=== PATIENT | female | born 1960 | race Caucasian/White ===

== ENCOUNTER → 2016-07-17 | Outpatient (REF) | payer BC ==
[2016-07-17 12:27] LABS: BASO # 0.1 K/mm3 (0.0-0.2); BASO % 1.3 % (0.0-1.0); EOS # 0.4 K/mm3 (0.0-0.50); EOS % 3.5 % (0.0-3.0); LARGE UNSTAINED CELL # 0.1 K/mm3 (0.0-0.4); LARGE UNSTAINED CELL % 1.2 % (0.0-4.0); LYMPH # 3.6 K/mm3 (1.5-4.5); LYMPH % 33.2 % (24.0-44.0); MEAN CORPUSCULAR HEMOGLOBIN 25.6 pg (27.0-33.0); MEAN CORPUSCULAR HGB CONC 31.4 g/dl (32.0-36.5); MEAN CORPUSCULAR VOLUME 81.5 fl (80.0-96.0); MONO # 0.5 K/mm3 (0.0-0.8); MONO % 4.8 % (0.0-5.0); NEUTROPHILS # 5.8 K/mm3 (1.8-7.7); PLATELET COUNT, AUTOMATED 276 k/mm3 (150-450); RED CELL DISTRIBUTION WIDTH 15.9 % (11.5-14.5); WHITE BLOOD COUNT 10.4 K/mm3 (4.0-10.0)
[2016-07-17 12:42] LABS: ANION GAP 6 MEQ/L (8-16); BLOOD UREA NITROGEN 10 MG/DL (7-18); CALCIUM LEVEL 8.6 MG/DL (8.5-10.1); CARBON DIOXIDE LEVEL 30 MEQ/L (21-32); CHLORIDE LEVEL 104 MEQ/L (98-107); CREATININE FOR GFR 0.81 MG/DL (0.55-1.02); GLOMERULAR FILTRATION RATE > 60.0 (>51); GLUCOSE, FASTING 106 MG/DL (70-105); POTASSIUM SERUM 4.3 MEQ/L (3.5-5.1); SODIUM LEVEL 140 MEQ/L (136-145)
== END ==
LOC: M SFHCPLAZ 08:24
PROVIDERS: ATTEND Internal Medicine
DX: Z01.818 Encounter for other preprocedural examination (principal); R71.8 Other abnormality of red blood cells; R73.01 Impaired fasting glucose

== ENCOUNTER → 2017-01-21 | Outpatient (REF) | payer BC ==
[2017-01-21 13:01] LABS: MEAN CORPUSCULAR HEMOGLOBIN 27.1 pg (27.0-33.0); MEAN CORPUSCULAR HGB CONC 33.1 g/dl (32.0-36.5); MEAN CORPUSCULAR VOLUME 81.8 fl (80.0-96.0); RED CELL DISTRIBUTION WIDTH 15.6 % (11.5-14.5); WHITE BLOOD COUNT 9.2 K/mm3 (4.0-10.0)
[2017-01-21 13:27] LABS: BANDS 1 % (< 11); BASOPHILS 1 % (0-4); EOSINOPHILS 6 % (0-5)
[2017-01-21 13:45] LABS: ALBUMIN 3.5 GM/DL (3.2-5.2); ALKALINE PHOSPHATASE 82 U/L (45-117); ALT/SGPT 20 U/L (12-78); ANION GAP 8 MEQ/L (8-16); AST/SGOT 11 U/L (15-37); BILIRUBIN,TOTAL 0.4 MG/DL (0.2-1.0); BLOOD UREA NITROGEN 11 MG/DL (7-18); CALCIUM LEVEL 8.9 MG/DL (8.5-10.1); CARBON DIOXIDE LEVEL 28 MEQ/L (21-32); CHLORIDE LEVEL 100 MEQ/L (98-107); CREATININE FOR GFR 0.72 MG/DL (0.55-1.02); GLOMERULAR FILTRATION RATE > 60.0 (>51); GLUCOSE, FASTING 87 MG/DL (70-105); SODIUM LEVEL 136 MEQ/L (136-145); TOTAL PROTEIN 7.4 GM/DL (6.4-8.2)
== END ==
LOC: M SFHCPLAZ 08:52
PROVIDERS: ATTEND Internal Medicine
DX: R71.8 Other abnormality of red blood cells (principal); R73.01 Impaired fasting glucose

== ENCOUNTER → 2018-02-06 | Outpatient (REF) | payer BC ==
[2018-02-06 10:21] LABS: HEMATOCRIT 39.7 % (36.0-47.0); HEMOGLOBIN 12.7 g/dl (12.0-15.5); MEAN CORPUSCULAR VOLUME 84.3 fl (80.0-96.0); PLATELET COUNT, AUTOMATED 326 10^3/uL (150-450); RED BLOOD COUNT 4.71 10^6/uL (4.00-5.40); RED CELL DISTRIBUTION WIDTH 14.7 % (11.5-14.5); WHITE BLOOD COUNT 11.3 10^3/uL (4.0-10.0)
[2018-02-06 10:53] LABS: ALBUMIN 3.5 GM/DL (3.2-5.2); ALKALINE PHOSPHATASE 83 U/L (45-117); ALT/SGPT 36 U/L (12-78); ANION GAP 9 MEQ/L (8-16); AST/SGOT 15 U/L (7-37); BILIRUBIN,TOTAL 0.2 MG/DL (0.2-1.0); BLOOD UREA NITROGEN 13 MG/DL (7-18); CALCIUM LEVEL 8.9 MG/DL (8.5-10.1); CARBON DIOXIDE LEVEL 27 MEQ/L (21-32); CHLORIDE LEVEL 106 MEQ/L (98-107); CHOLESTEROL LEVEL 200 MG/DL (<200); CHOLESTEROL RISK RATIO 3.846 (<5); CREATININE FOR GFR 0.79 MG/DL (0.55-1.30); GLOMERULAR FILTRATION RATE > 60.0 (>51); GLUCOSE, FASTING 98 MG/DL (70-100); HDL CHOLESTEROL 52 MG/DL (>40); LDL CHOLESTEROL 106.6 MG/DL (<100); NON-HDL-C 148 MG/DL; POTASSIUM SERUM 4.1 MEQ/L (3.5-5.1); SODIUM LEVEL 142 MEQ/L (136-145); TOTAL PROTEIN 7.4 GM/DL (6.4-8.2); TRIGLYCERIDES LEVEL 207 MG/DL (<150)
[2018-02-06 11:54] LABS: HEPATITIS C VIRUS ABY INDEX 0.1 INDEX (<0.8)
[2018-02-06 12:22] LABS: ESTIMATED AVERAGE GLUCOSE 114 MG/DL (60-110); HEMOGLOBIN A1c 5.6 %
== END ==
LOC: M SFHCPLAZ 08:08
DX: R71.8 Other abnormality of red blood cells (principal); R73.01 Impaired fasting glucose; Z11.59 Encounter for screening for other viral diseases
CPT/HCPCS: 80053

== ENCOUNTER → 2018-03-06 | Outpatient (CLI) | payer BC | LOC: M EKG 11:34 | DX: R55 Syncope and collapse (principal) | CPT/HCPCS: 93225 ==

== ENCOUNTER → 2018-03-09 | Outpatient (CLI) | payer BC | LOC: M LAB 17:02 | DX: I49.5 Sick sinus syndrome (principal) | CPT/HCPCS: 84443 ==

== ENCOUNTER 2018-03-11 11:38 | Observation (INO) | payer BC ==
[2018-03-11] MEDS ORDERED: LR 1,000 ML IV (12:00)
[2018-03-11] MEDS ORDERED: LIDOCAINE 2% INJ 100 MG/5 ML SDV (FOR ANES.) As Ordered (12:54)
[2018-03-11] MEDS ORDERED: PROPOFOL 200 MG/20 ML VIAL As Ordered (12:54)
[2018-03-11] MEDS ORDERED: ONDANSETRON 4MG/2ML VIAL (J2405) As Ordered (12:55)
[2018-03-11] MEDS ORDERED: MIDAZOLAM INJ 2 MG/2 ML VIAL (J2250) As Ordered (12:57)
[2018-03-11] MEDS ORDERED: fentaNYL 100 MCG/2 ML INJECTION (J3010) As Ordered (12:57)
[2018-03-11] MEDS: ISOVUE-300 61% 50ML VIAL (Q9967) As Ordered (13:04)
[2018-03-11] MEDS: AMIODARONE HCL 360 MG/200 ML PREMIXED BAG (NEXTERONE) As Ordered (13:04)
[2018-03-11] MEDS: BACITRACIN PWD 50,000 UNITS VIAL As Ordered (13:04)
[2018-03-11] MEDS: LIDOCAINE 1% SDV INJ 30 ML VIAL As Ordered (13:48)
[2018-03-11] MEDS: LR 1,000 ML IV (14:58)
[2018-03-11] MEDS ORDERED: zolPIDEM TARTRATE 5 MG TAB PO (15:00)
[2018-03-11] MEDS ORDERED: traMADol 50 MG TAB PO (15:15)
[2018-03-11] MEDS ORDERED: PERCOCET 5MG/325MG TAB As Ordered (15:19)
[2018-03-11] MEDS: PERCOCET 5MG/325MG TAB PO (15:20)
[2018-03-11] MEDS ORDERED: HYDROMORPHONE HCL 0.5 MG/ 0.5 ML SYRINGE (J1170 PER 1) IV (15:30)
[2018-03-11] MEDS ORDERED: ONDANSETRON 4MG/2ML VIAL (J2405) IV (15:30)
[2018-03-11] MEDS ORDERED: fentaNYL 100 MCG/2 ML INJECTION (J3010) IV (15:30)
[2018-03-11] MEDS: LORATADINE 10 MG TAB PO (15:59)
[2018-03-11] MEDS ORDERED: SLF 3 ML SYR IV (16:30)
[2018-03-11] MEDS: POLYVINYL ALCOHOL OPHTH SOLN 15 ML(LIQUITEARS) OU ×2 (17:00→21:00)
[2018-03-11] MEDS: ACETAMINOPHEN TAB 650MG DOSE (2X325MG) PO (19:19)
[2018-03-11] MEDS: ceFAZolin SOD 1 GM in D5W MINI-BAG PLUS 50 ML IV (21:38)
[2018-03-11] MEDS: DOCUSATE SODIUM 100 MG CAP PO (21:38)
[2018-03-11] MEDS: SLF 3 ML SYR IV (21:39)
[2018-03-12] MEDS: ACETAMINOPHEN TAB 650MG DOSE (2X325MG) PO ×4 (04:08→18:02)
[2018-03-12] MEDS: ceFAZolin SOD 1 GM in D5W MINI-BAG PLUS 50 ML IV ×2 (04:08→13:14)
[2018-03-12] MEDS: SLF 3 ML SYR IV ×2 (04:09→14:00)
[2018-03-12] MEDS: POLYVINYL ALCOHOL OPHTH SOLN 15 ML(LIQUITEARS) OU ×4 (09:00→16:47)
[2018-03-12] MEDS: LORATADINE 10 MG TAB PO (09:07)
[2018-03-12] MEDS: DOCUSATE SODIUM 100 MG CAP PO (09:07)
[2018-03-12] MEDS: FLUoxetine 20 MG CAP PO (09:08)
== END 2018-03-12 20:42 | disposition home or self-care (01) ==
LOC: M SDC 11:38 → M ED INP 14:54 → M PCU 15:42
DX: I49.5 Sick sinus syndrome (principal); R55 Syncope and collapse; J45.909 Unspecified asthma, uncomplicated
CPT/HCPCS: 33208

== ENCOUNTER → 2018-07-22 | Outpatient (REF) | payer BC ==
[~2018-07-22] MED LIST: ACYC400T PO; BIOT2500 PO; CLAR10CA3 PO; FLUO40CA PO; NATU99.0 OP; PRED20TA PO; PREG50CA PO
== END ==
LOC: M SFHCPLAZ 16:21
PROVIDERS: ATTEND Internal Medicine
DX: M25.50 Pain in unspecified joint (principal)

== ENCOUNTER → 2018-07-23 | Outpatient (CLI) | payer BC ==
[~2018-07-23] MED LIST changes: -BIOT2500 PO; -PREG50CA PO
[2018-07-23 17:02] LABS: RHEUMATOID FACTOR QUANT < 10.0 IU/ML (<15.0)
[2018-07-27 00:06] LABS: ANA (HEP2) Negative (.); CYCLIC CITRULLINATED PEPTIDE 11 units (0-19); Lyme Disease IgG/IgM Antibodie <0.91 ISR (0.00-0.90); Lyme Disease IgM Ab Quantitati <0.80 index (0.00-0.79)
== END ==
LOC: M WUC 11:29
PROVIDERS: ATTEND Internal Medicine
DX: M25.50 Pain in unspecified joint (principal)

== ENCOUNTER 2018-10-24 12:03 | Emergency (ER) | payer BC ==
[~2018-10-24] VITALS: Ht 165.1 cm; Wt 102.3 kg
[~2018-10-24 12:03] MED LIST changes: +BIOT2500 PO; +PREG50CA PO; +TOPI50TA9 PO
[2018-10-24 12:04] VITALS: BP 137/65
--- NOTE | 2018-10-24 13:03 | REP ---
Unilateral left ribs PA chest five views History: Trauma Comparison: 03/12/2018 The lungs are clear. The heart is normal in size. The pulmonary vasculature is normal in appearance. The bony structure is intact. A cardiac pacemaker is present. Impression: No acute disease. Electronically Signed by Bertin Merino MD 10/24/2018 12:54 P
--- NOTE | 2018-10-24 17:43 | ECGEPIP ---
Stationary ECG Study [facility] - ED Test Date: 2018-10-24 Pat Name: VIRAL RUFF Department: Room: - Gender: F [place]: : 1960 Requested By: MARCELLO Ferrer Order Number: [id number] Reading MD: Ashley Myers Measurements Intervals [place] Rate: 76 P: 35 [place]: 198 QRS: 35 QRSD: 88 T: 68 QT: 387 QTc: 437 Interpretive Statements SINUS RHYTHM NONSPECIFIC T-WAVE ABNORMALITY DELAYED R WAVE PROGRESSION CW 03/12/[address] T WAVE CHANGES Electronically Signed On 10-24-2018 17:43:24 EDT by Ashley Myers
== END 2018-10-24 13:02 | disposition home or self-care (01) ==
LOC: M ED 12:03
DX: S80.12XA Contusion of left lower leg, initial encounter (principal); S20.212A Contusion of left front wall of thorax, initial encounter; W17.89XA Other fall from one level to another, initial encounter; Y92.838 Other recreation area as the place of occurrence of the external cause; F41.9 Anxiety disorder, unspecified; I49.5 Sick sinus syndrome; Z95.0 Presence of cardiac pacemaker; Z79.899 Other long term (current) drug therapy; Z91.018 Allergy to other foods

== ENCOUNTER 2018-10-26 13:41 | Emergency (ER) | payer BC ==
[~2018-10-26] VITALS: Ht 165.1 cm; Wt 104.0 kg
[2018-10-26] MEDS ORDERED: NORCO, ANEXSIA 5/325MG TABLET (HYDROcodone/ACETAMINOPHEN) PO ONE (15:30)
[2018-10-26] MEDS ORDERED: NORC1TAB7 PO (16:21)
[2018-10-26 16:26] VITALS: BP 125/66
--- NOTE | 2018-10-26 17:49 | REP ---
UNILATERAL LEFT RIBS, PA CHEST, FIVE VIEWS: HISTORY: Fall. COMPARISON: 10/24/2018 The lungs are clear. The heart is normal in size. The pulmonary vasculature is normal in appearance. The bony structure is intact. A cardiac pacemaker is present. IMPRESSION:No acute disease. Electronically Signed by Bertin Merino MD 10/27/2018 08:39 A
--- NOTE | 2018-10-26 19:06 | REP ---
CT CHEST WITHOUT IV CONTRAST: CT chest was performed without IV contrast. Sagittal and coronal reconstruction images are performed. Lung show dependant atelectatic changes. There is no pneumothorax. There is no pleural or pericardial effusion. The heart is normal in size. There is a left pacemaker. No gross adenopathy is seen. There is no aneurysm of the thoracic aorta. The visualized osseous structures appear intact. There are mild diffuse degenerative changes of the spine. IMPRESSION: No acute abnormality is detected. No evidence of rib fracture. No pneumothorax. Dependant atelectatic changes in the lung bases. Electronically Signed by Mauricio Dillard MD 10/28/2018 10:12 A
== END 2018-10-26 16:46 | disposition home or self-care (01) ==
LOC: M ED 13:41
DX: S20.212A Contusion of left front wall of thorax, initial encounter (principal); W10.9XXA Fall (on) (from) unspecified stairs and steps, initial encounter; Y92.219 Unspecified school as the place of occurrence of the external cause; Y93.9 Activity, unspecified; Y99.9 Unspecified external cause status; J98.11 Atelectasis; Z91.018 Allergy to other foods; Z95.0 Presence of cardiac pacemaker; Z79.891 Long term (current) use of opiate analgesic; Z79.899 Other long term (current) drug therapy

== ENCOUNTER → 2019-01-06 | Outpatient (REF) | payer BC ==
[~2019-01-06] MED LIST changes: +NORC1TAB7 PO
[2019-01-09 00:07] LABS: HPV HYBRID CAPTURE II Negative (Negative)
== END ==
LOC: M SFHCWAGY 16:05
PROVIDERS: ATTEND Nurse Practitioner Family
DX: Z12.4 Encounter for screening for malignant neoplasm of cervix (principal)
CPT/HCPCS: 87624; G0123

== ENCOUNTER → 2019-01-20 | Outpatient (REF) | payer BC ==
[2019-01-20 10:03] LABS: BASO % 0.4 % (0.0-1.0); EOS # 0.5 10^3/uL (0.0-0.50); EOS % 4.5 % (0.0-3.0); HEMATOCRIT 42.6 % (36.0-47.0); HEMOGLOBIN 13.3 g/dl (12.0-15.5); LYMPH # 3.9 10^3/uL (1.5-4.5); LYMPH % 38.6 % (24.0-44.0); MEAN CORPUSCULAR HEMOGLOBIN 26.8 pg (27.0-33.0); MEAN CORPUSCULAR HGB CONC 31.2 g/dl (32.0-36.5); MEAN CORPUSCULAR VOLUME 85.7 fl (80.0-96.0); MONO # 0.7 10^3/uL (0.0-0.8); MONO % 6.8 % (0.0-5.0); NEUTROPHILS % 49.4 % (36.0-66.0); PLATELET COUNT, AUTOMATED 279 10^3/uL (150-450); RED BLOOD COUNT 4.97 10^6/uL (4.00-5.40)
[2019-01-20 10:34] LABS: ALBUMIN 3.6 GM/DL (3.2-5.2); ALT/SGPT 26 U/L (12-78); BILIRUBIN,TOTAL 0.3 MG/DL (0.2-1.0); BLOOD UREA NITROGEN 11 MG/DL (7-18); CARBON DIOXIDE LEVEL 30 MEQ/L (21-32); CHLORIDE LEVEL 106 MEQ/L (98-107); CREATININE FOR GFR 0.67 MG/DL (0.55-1.30); GLOMERULAR FILTRATION RATE > 60.0 (>51); GLUCOSE, FASTING 94 MG/DL (70-100); POTASSIUM SERUM 4.4 MEQ/L (3.5-5.1); SODIUM LEVEL 140 MEQ/L (136-145); TOTAL PROTEIN 7.4 GM/DL (6.4-8.2)
== END ==
LOC: M SFHCPLAZ 08:10
PROVIDERS: ATTEND Nurse Practitioner Adult Health
DX: Z01.818 Encounter for other preprocedural examination (principal)

== ENCOUNTER → 2019-07-22 | Outpatient (CLI) | payer BC ==
--- NOTE | 2019-07-23 01:58 | REPPI ---
Clinical: Nontraumatic pain. Technique: AP, lateral, bilateral oblique and sunrise views of the left knee. Findings: Old healed proximal fibular fracture is suggested. The tibiofemoral joint space appears normal. [place] view demonstrates increase sclerosis and fraying along the anterior patellar margin with anterior prepatellar swelling suggesting patellar tendinopathy. No acute fracture dislocation. No obvious effusion. Impression: 1. No acute fracture dislocation. 2. Patellar tendinopathy. Electronically Signed by Ruddy Hackett MD 07/23/2019 01:49 A
== END ==
LOC: M PLALAB 09:21 → M PLAIMG 09:21
PROVIDERS: ATTEND Nurse Practitioner Adult Health
DX: M25.562 Pain in left knee (principal)

== ENCOUNTER → 2020-03-25 | Outpatient (CLI) | payer BC ==
[~2020-03-25] MED LIST changes: +ALBU8.5H INH; +DOXY100T; +MAGN400C PO; +MELO15TA28; +OCUVTAB8 PO; +OMEP1CAP73 PO; +PRED20TA
== END ==
LOC: M LABSMTC 11:24
PROVIDERS: ATTEND Anesthesiology
DX: Z01.812 Encounter for preprocedural laboratory examination (principal); Z20.828 Contact with and (suspected) exposure to other viral communicable diseases
CPT/HCPCS: C9803; U0003

== ENCOUNTER 2020-03-30 08:01 | Day surgery (SDC) | payer BC ==
[~2020-03-30] VITALS: Ht 165.1 cm; Wt 103.0 kg
[~2020-03-30 08:01] MED LIST changes: -DOXY100T; +LIDOCAINE 2% 100MG/5ML SDV (FOR ANES.) As Ordered ONE; -MELO15TA28; +NS 1,000 ML IV ONE; -PRED20TA; +propofoL 200 MG/20 ML VIAL As Ordered ONE
--- NOTE | 2020-03-30 08:57 | ROOR ---
Patient Name: Liz Al Procedure Date: 03/30/2020 8:28 AM Date of : 1960 Age: 59 Room: OP02 Gender: Female Note Status: Finalized Procedure: Colonoscopy Indications: Colon cancer screening in patient at increased risk: Family history of colorectal cancer in multiple 2nd degree relatives Providers: Ray MCCLOUD MD Referring MD: Jad Sood MD Requesting Provider: Medicines: Monitored Anesthesia Care Complications: No immediate complications. Procedure: Pre-Anesthesia Assessment: - The heart rate, respiratory rate, oxygen saturations, blood pressure, adequacy of pulmonary ventilation, and response to care were monitored throughout the procedure. The Colonoscope was introduced through the anus and advanced to the cecum, identified by appendiceal orifice and ileocecal valve. The colonoscopy was performed without difficulty. The patient tolerated the procedure well. The quality of the bowel preparation was good. Findings: The perianal and digital rectal examinations were normal. A diminutive polyp was found in the sigmoid colon. The polyp was sessile. The polyp was removed with a cold snare. Resection and retrieval were complete. Mild sigmoid diverticulosis and small internal hemorrhoids. The exam was otherwise without abnormality on direct and retroflexion views. Impression: - One diminutive polyp in the sigmoid colon, removed with a cold snare. Resected and retrieved. - Mild sigmoid diverticulosis and small internal hemorrhoids. - The examination was otherwise normal on direct and retroflexion views. Recommendation: - Repeat colonoscopy in 5 years for surveillance. Ray Mccloud MD Ray MCCLOUD MD 03/30/2020 8:57:20 AM Electronically signed by Ray MCCLOUD MD Number of Addenda: 0 Note Initiated On: 03/30/2020 8:28 AM Estimated Blood Loss: Estimated blood loss: none.
[2020-03-30 09:32] VITALS: BP 142/75
== END 2020-03-30 09:33 | disposition home or self-care (01) ==
LOC: M OPP 08:01
PROVIDERS: ATTEND Internal Medicine Gastroenterology
DX: Z12.11 Encounter for screening for malignant neoplasm of colon (principal); Z80.0 Family history of malignant neoplasm of digestive organs; D12.5 Benign neoplasm of sigmoid colon; K21.9 Gastro-esophageal reflux disease without esophagitis; M79.7 Fibromyalgia; Z79.899 Other long term (current) drug therapy; Z91.018 Allergy to other foods; Z95.0 Presence of cardiac pacemaker

== ENCOUNTER → 2020-04-12 | Outpatient (CLI) | payer BC ==
[~2020-04-12] MED LIST changes: +DOXY100T; -LIDOCAINE 2% 100MG/5ML SDV (FOR ANES.) As Ordered ONE; +MELO15TA28; -NS 1,000 ML IV ONE; +PRED20TA; -propofoL 200 MG/20 ML VIAL As Ordered ONE
== END ==
LOC: M LABSMTC 12:25
PROVIDERS: ATTEND Family Medicine
DX: Z20.828 Contact with and (suspected) exposure to other viral communicable diseases (principal)
CPT/HCPCS: C9803; U0003

== ENCOUNTER 2020-04-21 11:08 | Emergency (ER) | payer BC ==
[~2020-04-21] VITALS: Ht 165.1 cm; Wt 95.5 kg
[~2020-04-21 11:08] MED LIST changes: -DOXY100T; -MELO15TA28; -PRED20TA
[2020-04-21] MEDS ORDERED: MELO15TA28 (11:23)
[2020-04-21] MEDS ORDERED: PRED20TA (11:23)
[2020-04-21] MEDS ORDERED: DOXY100T (11:23)
[2020-04-21 12:57] LABS: BASO # 0.1 10^3/uL (0.0-0.2); BASO % 0.4 % (0.0-1.0); EOS # 0.3 10^3/uL (0.0-0.5); EOS % 2.2 % (0.0-3.0); HEMATOCRIT 42.6 % (36.0-47.0); HEMOGLOBIN 13.4 g/dl (12.0-15.5); LYMPH # 6.2 10^3/uL (1.5-5.0); LYMPH % 39.5 % (24.0-44.0); MEAN CORPUSCULAR HEMOGLOBIN 27.2 pg (27.0-33.0); MEAN CORPUSCULAR HGB CONC 31.5 g/dl (32.0-36.5); MEAN CORPUSCULAR VOLUME 86.4 fl (80.0-96.0); MONO # 0.9 10^3/uL (0.0-0.8); MONO % 5.6 % (0.0-5.0); NEUTROPHILS # 8.1 10^3/uL (1.5-8.5); NEUTROPHILS % 51.8 % (36.0-66.0); PLATELET COUNT, AUTOMATED 286 10^3/uL (150-450); RED BLOOD COUNT 4.93 10^6/uL (4.00-5.40)
[2020-04-21 12:58] LABS: WHITE BLOOD COUNT 15.6 10^3/uL (4.0-10.0)
--- NOTE | 2020-04-21 12:58 | REP ---
INDICATION: near syncope COMPARISON: 03/12/2018 TECHNIQUE: PA/Lateral FINDINGS: The heart is normal in size. There is no hilar or mediastinal adenopathy. The lungs are clear. The pleural angles are unremarkable. Bones and soft tissues are unremarkable. Left 2 lead pacemaker appears unchanged in position. IMPRESSION: No acute pulmonary disease. <Electronically signed by Mauricio Dillard > 04/21/20 [id number]
[2020-04-21 13:09] LABS: BLOOD UREA NITROGEN 22 MG/DL (7-18); CALCIUM LEVEL 9.3 MG/DL (8.5-10.1); CARBON DIOXIDE LEVEL 27 MEQ/L (21-32); CHLORIDE LEVEL 106 MEQ/L (98-107); CK-MB VALUE MASS < 1.0 NG/ML (<3.6); CPK CREATINE PHOSPHOKINASE 78 U/L (26-192); CREATININE FOR GFR 0.89 MG/DL (0.55-1.30); FREE T4 1.11 NG/DL (0.76-1.46); GLOMERULAR FILTRATION RATE > 60.0 (>51); GLUCOSE, FASTING 102 MG/DL (70-100); MAGNESIUM LEVEL 2.5 MG/DL (1.8-2.4); MB/CK RELATIVE INDEX 1.28 (< OR =4); POTASSIUM SERUM 3.9 MEQ/L (3.5-5.1); SODIUM LEVEL 140 MEQ/L (136-145); TROPONIN I < 0.02 NG/ML (< 0.10)
[2020-04-21 13:14] LABS: INR 0.96; PARTIAL THROMBOPLASTIN TIME 26.3 SECONDS (24.2-38.5)
[2020-04-21 14:09] VITALS: BP 131/62
--- NOTE | 2020-04-21 20:35 | ECGEPIP ---
[facility] - ED Test Date: 2020-04-21 Pat Name: VIRAL RUFF Department: Room: - Gender: Female Director Of Medicare: rebekah : 1960 Requested By: CATRACHO Corley Order Number: [id number] Reading MD: Isha Gu Measurements Intervals [place] Rate: 63 P: 48 [place]: 198 QRS: 44 QRSD: 97 T: 60 QT: 424 QTc: 437 Interpretive Statements SINUS RHYTHM NSTTW abnormalities DECREASED RATE 10/24/18 Electronically Signed on 04-21-2020 20:35:01 EDT by Isha Gu
== END 2020-04-21 15:01 | disposition home or self-care (01) ==
LOC: M ED 11:08 → EDBD 11:08 → UNDOADMIN 13:22 → M ED INP 13:22 → M ED 15:01
DX: R55 Syncope and collapse (principal); J45.909 Unspecified asthma, uncomplicated; I49.5 Sick sinus syndrome; M48.00 Spinal stenosis, site unspecified; Z95.0 Presence of cardiac pacemaker; Z91.018 Allergy to other foods; Z79.51 Long term (current) use of inhaled steroids; Z79.899 Other long term (current) drug therapy

== ENCOUNTER → 2020-05-02 | Outpatient (CLI) | payer BC ==
[~2020-05-02] MED LIST changes: +DOXY100T; +MELO15TA28; +PRED20TA
[2020-05-02 09:50] LABS: HEMATOCRIT 41.5 % (36.0-47.0); HEMOGLOBIN 12.6 g/dl (12.0-15.5); MEAN CORPUSCULAR HEMOGLOBIN 26.9 pg (27.0-33.0); MEAN CORPUSCULAR HGB CONC 30.4 g/dl (32.0-36.5); MEAN CORPUSCULAR VOLUME 88.7 fl (80.0-96.0); PLATELET COUNT, AUTOMATED 256 10^3/uL (150-450); RED BLOOD COUNT 4.68 10^6/uL (4.00-5.40); WHITE BLOOD COUNT 10.9 10^3/uL (4.0-10.0)
[2020-05-02 10:27] LABS: ALBUMIN 3.5 GM/DL (3.2-5.2); ALT/SGPT 28 U/L (12-78); BILIRUBIN,TOTAL 0.4 MG/DL (0.2-1.0); BLOOD UREA NITROGEN 15 MG/DL (7-18); CALCIUM LEVEL 8.9 MG/DL (8.5-10.1); CARBON DIOXIDE LEVEL 30 MEQ/L (21-32); CHLORIDE LEVEL 103 MEQ/L (98-107); CHOLESTEROL LEVEL 192 MG/DL (<200); CHOLESTEROL RISK RATIO 3.918 (<5); GLOMERULAR FILTRATION RATE > 60.0 (>51); GLUCOSE, FASTING 104 MG/DL (70-100); HDL CHOLESTEROL 49 MG/DL (>40); LDL CHOLESTEROL 113 MG/DL (<100); NON-HDL-C 143 MG/DL; POTASSIUM SERUM 4.1 MEQ/L (3.5-5.1); SODIUM LEVEL 139 MEQ/L (136-145); TOTAL PROTEIN 6.9 GM/DL (6.4-8.2); TRIGLYCERIDES LEVEL 148 MG/DL (<150)
== END ==
LOC: M WUC 08:13
PROVIDERS: ATTEND Internal Medicine
DX: R73.01 Impaired fasting glucose (principal)

== ENCOUNTER → 2021-01-08 | Outpatient (CLI) | payer BC ==
[~2021-01-08] MED LIST changes: +ACYC1TAB PO; -ACYC400T PO
[2021-01-08 13:26] LABS: BASO # 0.1 10^3/uL (0.0-0.2); BASO % 0.5 % (0.0-1.0); EOS # 0.5 10^3/uL (0.0-0.5); EOS % 4.3 % (0.0-3.0); HEMATOCRIT 42.8 % (36.0-47.0); HEMOGLOBIN 13.2 g/dl (12.0-15.5); LYMPH # 4.3 10^3/uL (1.5-5.0); LYMPH % 41.1 % (24.0-44.0); MEAN CORPUSCULAR HGB CONC 30.8 g/dl (32.0-36.5); MEAN CORPUSCULAR VOLUME 87.5 fl (80.0-96.0); MONO # 0.6 10^3/uL (0.0-0.8); MONO % 5.8 % (2.0-8.0); NEUTROPHILS # 5.1 10^3/uL (1.5-8.5); NEUTROPHILS % 48.1 % (36.0-66.0); PLATELET COUNT, AUTOMATED 286 10^3/uL (150-450); RED BLOOD COUNT 4.89 10^6/uL (4.00-5.40); WHITE BLOOD COUNT 10.6 10^3/uL (4.0-10.0)
[2021-01-08 14:01] LABS: ALBUMIN 3.8 GM/DL (3.2-5.2); ALT/SGPT 27 U/L (12-78); BILIRUBIN,TOTAL 0.4 MG/DL (0.2-1.0); BLOOD UREA NITROGEN 15 MG/DL (7-18); CALCIUM LEVEL 9.5 MG/DL (8.5-10.1); CARBON DIOXIDE LEVEL 30 MEQ/L (21-32); CHLORIDE LEVEL 105 MEQ/L (98-107); CHOLESTEROL LEVEL 202 MG/DL (<200); CHOLESTEROL RISK RATIO 3.672 (<5); CREATININE FOR GFR 0.66 MG/DL (0.55-1.30); GLOMERULAR FILTRATION RATE > 60.0 (>51); GLUCOSE, FASTING 80 MG/DL (70-100); HDL CHOLESTEROL 55 MG/DL (>40); LDL CHOLESTEROL 115 MG/DL (<100); NON-HDL-C 147 MG/DL; POTASSIUM SERUM 5.1 MEQ/L (3.5-5.1); SODIUM LEVEL 140 MEQ/L (136-145); TOTAL PROTEIN 7.7 GM/DL (6.4-8.2); TRIGLYCERIDES LEVEL 162 MG/DL (<150)
[2021-01-08 14:03] LABS: HEMOGLOBIN A1c 5.8 %
== END ==
LOC: M PLALAB 12:02
PROVIDERS: ATTEND Internal Medicine
DX: J45.30 Mild persistent asthma, uncomplicated (principal); R73.01 Impaired fasting glucose

== ENCOUNTER → 2021-01-08 | Outpatient (REF) | payer BC | LOC: M SFHCPLAZ 11:42 | PROVIDERS: ATTEND Internal Medicine | DX: J45.30 Mild persistent asthma, uncomplicated (principal); R73.01 Impaired fasting glucose ==

== ENCOUNTER → 2021-01-10 | Outpatient (CLI) | payer BC ==
[~2021-01-10] MED LIST changes: +ISOVUE-370 76% 100ML VIAL ONE
--- NOTE | 2021-01-10 19:48 | REPVR ---
PROCEDURE INFORMATION: Exam: CT Head Without And With Contrast Exam date and time: 01/10/2021 3:49 PM Age: 60 years old Clinical indication: Pain; Headache; Additional info: Headaches TECHNIQUE: Imaging protocol: Computed tomography of the head without and with intravenous contrast. Radiation optimization: All CT scans at this facility use at least one of these dose optimization techniques: automated exposure control; mA and/or kV adjustment per patient size (includes targeted exams where dose is matched to clinical indication); or iterative reconstruction. Contrast material: ISOVUE 370; Contrast volume: 75 ml; Contrast route: INTRAVENOUS (IV); COMPARISON: CT Head without contrast 12/21/2017 12:14 PM FINDINGS: Brain: Normal. No hemorrhage. Unremarkable white matter. No mass effect. Cerebral ventricles: No ventriculomegaly. Paranasal sinuses: Visualized sinuses are unremarkable. No fluid levels. Mastoid air cells: Visualized mastoid air cells are well aerated. Bones/joints: Unremarkable. No acute fracture. Soft tissues: Unremarkable. IMPRESSION: No acute intracranial abnormality. Electronically signed by: Lidya Ross On 01/10/2021 19:47:49 PM
== END ==
LOC: M PLAIMG 14:42
PROVIDERS: ATTEND Internal Medicine
DX: R51.9 Headache, unspecified (principal)

== ENCOUNTER → 2022-01-23 | Outpatient (CLI) | payer BC ==
[~2022-01-23] MED LIST changes: -ISOVUE-370 76% 100ML VIAL ONE
[2022-01-23 15:21] LABS: BASO % 0.4 % (0.0-1.0); EOS # 0.4 10^3/uL (0.0-0.5); EOS % 3.7 % (0.0-3.0); HEMOGLOBIN 13.8 g/dl (12.0-15.5); LYMPH # 3.6 10^3/uL (1.5-5.0); LYMPH % 34.3 % (24.0-44.0); MEAN CORPUSCULAR HEMOGLOBIN 27.1 pg (27.0-33.0); MEAN CORPUSCULAR HGB CONC 31.4 g/dl (32.0-36.5); MEAN CORPUSCULAR VOLUME 86.4 fl (80.0-96.0); MONO # 0.6 10^3/uL (0.0-0.8); MONO % 5.9 % (2.0-8.0); NEUTROPHILS # 5.8 10^3/uL (1.5-8.5); NEUTROPHILS % 55.3 % (36.0-66.0); PLATELET COUNT, AUTOMATED 291 10^3/uL (150-450); RED BLOOD COUNT 5.09 10^6/uL (4.00-5.40); WHITE BLOOD COUNT 10.4 10^3/uL (4.0-10.0)
[2022-01-23 15:43] LABS: ALBUMIN 3.7 GM/DL (3.2-5.2); ALT/SGPT 43 U/L (12-78); BILIRUBIN,TOTAL 0.4 MG/DL (0.2-1.0); BLOOD UREA NITROGEN 14 MG/DL (7-18); CARBON DIOXIDE LEVEL 30 MEQ/L (21-32); CHLORIDE LEVEL 106 MEQ/L (98-107); CHOLESTEROL LEVEL 178 MG/DL (<200); CHOLESTEROL RISK RATIO 3.016 (<5); CREATININE FOR GFR 0.74 MG/DL (0.55-1.30); GLOMERULAR FILTRATION RATE > 60.0 (>51); GLUCOSE, FASTING 100 MG/DL (70-100); HDL CHOLESTEROL 59 MG/DL (>40); LDL CHOLESTEROL 103 MG/DL (<100); NON-HDL-C 119 MG/DL; POTASSIUM SERUM 4.4 MEQ/L (3.5-5.1); SODIUM LEVEL 141 MEQ/L (136-145); TOTAL PROTEIN 7.6 GM/DL (6.4-8.2); TRIGLYCERIDES LEVEL 78 MG/DL (<150)
[2022-01-23 16:18] LABS: HEMOGLOBIN A1c 6.5 %
== END ==
LOC: M PLALAB 11:41
PROVIDERS: ATTEND Internal Medicine
DX: R73.01 Impaired fasting glucose (principal); G47.33 Obstructive sleep apnea (adult) (pediatric); I49.5 Sick sinus syndrome

== ENCOUNTER → 2022-03-21 | Outpatient (CLI) | payer BC | LOC: M PLALAB 11:35 → M PLAIMG 11:35 | PROVIDERS: ATTEND Nurse Practitioner Adult Health | DX: S69.92XD Unspecified injury of left wrist, hand and finger(s), subsequent encounter (principal) ==

== ENCOUNTER → 2022-05-15 | Outpatient (CLI) | payer BC | LOC: M WHC 08:06 | PROVIDERS: ATTEND Nurse Practitioner Family | DX: Z12.31 Encounter for screening mammogram for malignant neoplasm of breast (principal) ==

== ENCOUNTER → 2022-05-15 | Outpatient (REF) | payer BC | LOC: M PLALAB 10:31 | PROVIDERS: ATTEND Nurse Practitioner Family | DX: Z12.4 Encounter for screening for malignant neoplasm of cervix (principal) ==

== ENCOUNTER → 2022-07-11 | Outpatient (CLI) | payer BC ==
[~2022-07-11] MED LIST changes: +ISOVUE-300 61% 50ML VIAL As Ordered ONE; +LIDOCAINE 1% MDV 20ML VIAL As Ordered ONE
== END ==
LOC: M RAD 09:09
PROVIDERS: ATTEND Physician Assistant Surgical
DX: M17.12 Unilateral primary osteoarthritis, left knee (principal); M22.42 Chondromalacia patellae, left knee

== ENCOUNTER 2022-10-09 18:07 | Emergency (ER) | payer BC ==
[~2022-10-09] VITALS: Ht 162.6 cm; Wt 107.5 kg
[~2022-10-09 18:07] MED LIST changes: -ISOVUE-300 61% 50ML VIAL As Ordered ONE; -LIDOCAINE 1% MDV 20ML VIAL As Ordered ONE; +TOPI-254 PO; -TOPI50TA9 PO
[2022-10-09] MEDS ORDERED: methylPREDNISolone 125MG 2ML VIAL IV ONE (19:50)
[2022-10-09 20:21] LABS: BASO # 0.1 10^3/uL (0.0-0.2); BASO % 0.4 % (0.0-1.0); EOS # 0.4 10^3/uL (0.0-0.5); EOS % 3.6 % (0.0-3.0); HEMATOCRIT 40.1 % (36.0-47.0); HEMOGLOBIN 12.6 g/dl (12.0-15.5); LYMPH % 32.8 % (24.0-44.0); MEAN CORPUSCULAR HEMOGLOBIN 26.5 pg (27.0-33.0); MEAN CORPUSCULAR HGB CONC 31.4 g/dl (32.0-36.5); MEAN CORPUSCULAR VOLUME 84.2 fl (80.0-96.0); MONO # 0.7 10^3/uL (0.0-0.8); MONO % 5.4 % (2.0-8.0); NEUTROPHILS # 6.9 10^3/uL (1.5-8.5); NEUTROPHILS % 57.5 % (36.0-66.0); PLATELET COUNT, AUTOMATED 269 10^3/uL (150-450); RED BLOOD COUNT 4.76 10^6/uL (4.00-5.40); WHITE BLOOD COUNT 12.1 10^3/uL (4.0-10.0)
[2022-10-09 20:31] LABS: INR 0.99; PROTHROMBIN TIME 13.3 SECONDS (12.5-14.5)
[2022-10-09 20:34] LABS: D-DIMER QUANT 404.9 ng/ml (<500)
[2022-10-09 20:46] LABS: CK-MB VALUE MASS < 1.0 NG/ML (<3.6)
[2022-10-09 20:48] LABS: ALBUMIN 3.8 G/DL (3.2-5.2); ALKALINE PHOSPHATASE 87 U/L (46-116); ALT/SGPT 29 U/L (7.0-40); AST/SGOT < 8 U/L (<34); BILIRUBIN,DIRECT 0.1 MG/DL (<0.4); BILIRUBIN,TOTAL 0.4 MG/DL (0.3-1.2); CPK CREATINE PHOSPHOKINASE 88 U/L (34-145); MB/CK RELATIVE INDEX 1.13 (< OR =4); TOTAL PROTEIN 7.2 G/DL (5.7-8.2)
[2022-10-09] MEDS ORDERED: IPRATROPIUM 0.5MG/ALBUTEROL 2.5MG INH SOL UD 3ML (DUONEB) INH ONE (20:55)
[2022-10-09] MEDS ORDERED: cefTRIAXone SOD 1 GM in D5W MINI-BAG PLUS 50 ML IV ONE (20:55)
[2022-10-09] MEDS ORDERED: DOXYCYCLINE HYCLATE 100MG TABLET PO ONE (20:55)
[2022-10-09 21:56] VITALS: O2SAT 94
[2022-10-09] MEDS ORDERED: PRED20TA PO (22:02)
[2022-10-09] MEDS ORDERED: DOXY-443 PO (22:02)
[2022-10-09 22:25] VITALS: BP 148/78
== END 2022-10-09 22:39 | disposition home or self-care (01) ==
LOC: M ED 18:07
DX: J18.1 Lobar pneumonia, unspecified organism (principal); J45.909 Unspecified asthma, uncomplicated; K21.9 Gastro-esophageal reflux disease without esophagitis; F41.9 Anxiety disorder, unspecified; G47.33 Obstructive sleep apnea (adult) (pediatric); Z95.5 Presence of coronary angioplasty implant and graft; Z79.899 Other long term (current) drug therapy; Z91.018 Allergy to other foods
CPT/HCPCS: 71046; 80047; 80076; 82550; 82553; 83605; 83880; 84484; 85025; 85379; 85610; 87040; 87486; 87581; 87633; 87798; 93005; 94640; 96365; 96375; 99284; J0696; J2930

== ENCOUNTER → 2022-12-23 | Outpatient (CLI) | payer BC ==
[~2022-12-23] MED LIST changes: +DOXY-443 PO
== END ==
LOC: M PLAIMG 15:26
PROVIDERS: ATTEND Nurse Practitioner Adult Health
DX: J18.9 Pneumonia, unspecified organism (principal)

== ENCOUNTER → 2023-02-04 | Outpatient (CLI) | payer BC ==
[2023-02-04 14:23] LABS: ALBUMIN 3.8 G/DL (3.2-5.2); ALKALINE PHOSPHATASE 88 U/L (46-116); ALT/SGPT 21 U/L (7.0-40); AST/SGOT 10 U/L (<34); BILIRUBIN,TOTAL 0.5 MG/DL (0.3-1.2); BLOOD UREA NITROGEN 14 MG/DL (9-23); CALCIUM LEVEL 9.2 MG/DL (8.3-10.6); CARBON DIOXIDE LEVEL 31 MMOL/L (20-31); CHLORIDE LEVEL 107 MMOL/L (98-107); CHOLESTEROL LEVEL 175 MG/DL (<200); CHOLESTEROL RISK RATIO 3.09 (<5); CREATININE FOR GFR 0.81 MG/DL (0.55-1.30); GLOMERULAR FILTRATION RATE > 60.0 (>45); GLUCOSE, FASTING 110 MG/DL (74-106); HDL CHOLESTEROL 56.5 MG/DL (>40); LDL CHOLESTEROL 99.5 MG/DL (<100); NON-HDL-C 118.5 MG/DL; POTASSIUM SERUM 4.8 MMOL/L (3.5-5.1); SODIUM LEVEL 143 MMOL/L (136-145); TRIGLYCERIDES LEVEL 95 MG/DL (<150)
[2023-02-04 14:29] LABS: THYROID STIMULATING HORMONE 3.316 uIU/ML (0.55-4.78)
[2023-02-04 14:32] LABS: HEMOGLOBIN A1c 6.4 % (4.0-6.0)
== END ==
LOC: M PLALAB 09:22
PROVIDERS: ATTEND Nurse Practitioner Adult Health
DX: R73.01 Impaired fasting glucose (principal); I49.5 Sick sinus syndrome

== ENCOUNTER → 2023-02-04 | Outpatient (CLI) | payer BC | LOC: M PLAIMG 09:31 | DX: Z95.0 Presence of cardiac pacemaker (principal) ==

== ENCOUNTER → 2023-03-17 | Outpatient (CLI) | payer BC | LOC: M WUC 14:16 | PROVIDERS: ATTEND Student in an Organized Health Care Education/Training Program | DX: M79.672 Pain in left foot (principal); M19.072 Primary osteoarthritis, left ankle and foot ==

== ENCOUNTER 2023-06-01 19:58 | Emergency (ER) | payer BC ==
[~2023-06-01] VITALS: Ht 165.1 cm; Wt 103.4 kg
[~2023-06-01 19:58] MED LIST changes: +TOPI-21 PO; -TOPI-254 PO
[2023-06-01 19:59] VITALS: BP 161/76; TEMP 98.2; O2SAT 96
[2023-06-01] MEDS ORDERED: LIDOCAINE 2% W/EPINEPHRINE 20ML VIAL **PRES FREE As Ordered ONE (21:34)
[2023-06-01] MEDS ORDERED: LIDOCAINE 2% MDV 20ML VIAL SC ONE (21:35)
[2023-06-01] MEDS ORDERED: BOOSTRIX VACCINE (TETANUS/DIPHTH/ACEL. PERTUSSIS) 0.5ML SYR IM.IMMUN ONE (22:00)
== END 2023-06-01 22:08 | disposition home or self-care (01) ==
LOC: M ED 19:58
DX: S06.0X0A Concussion without loss of consciousness, initial encounter (principal); S30.0XXA Contusion of lower back and pelvis, initial encounter; S01.01XA Laceration without foreign body of scalp, initial encounter; W01.0XXA Fall on same level from slipping, tripping and stumbling without subsequent striking against object, initial encounter; Y92.009 Unspecified place in unspecified non-institutional (private) residence as the place of occurrence of the external cause; Y93.89 Activity, other specified; Y99.9 Unspecified external cause status; Z91.048 Other nonmedicinal substance allergy status; Z91.02 Food additives allergy status; Z79.52 Long term (current) use of systemic steroids; Z79.810 Long term (current) use of selective estrogen receptor modulators (SERMs); Z79.899 Other long term (current) drug therapy

== ENCOUNTER 2023-07-26 01:51 | Emergency (ER) | payer BC ==
[~2023-07-26] VITALS: Ht 165.1 cm; Wt 105.0 kg
[2023-07-26 02:30] LABS: BASO # 0.1 10^3/uL (0.0-0.2); BASO % 0.5 % (0.0-1.0); EOS # 0.5 10^3/uL (0.0-0.5); EOS % 4.4 % (0.0-3.0); HEMATOCRIT 39.8 % (36.0-47.0); LYMPH # 4.6 10^3/uL (1.5-5.0); LYMPH % 40.6 % (24.0-44.0); MEAN CORPUSCULAR HEMOGLOBIN 27.3 pg (27.0-33.0); MEAN CORPUSCULAR HGB CONC 32.7 g/dl (32.0-36.5); MEAN CORPUSCULAR VOLUME 83.4 fl (80.0-96.0); MONO # 0.7 10^3/uL (0.0-0.8); MONO % 6.2 % (2.0-8.0); NEUTROPHILS # 5.5 10^3/uL (1.5-8.5); PLATELET COUNT, AUTOMATED 303 10^3/uL (150-450); RED BLOOD COUNT 4.77 10^6/uL (4.00-5.40); WHITE BLOOD COUNT 11.4 10^3/uL (4.0-10.0)
[2023-07-26 02:54] LABS: BLOOD UREA NITROGEN 15 MG/DL (9-23); CALCIUM LEVEL 9.3 MG/DL (8.3-10.6); CARBON DIOXIDE LEVEL 26 MMOL/L (20-31); CHLORIDE LEVEL 107 MMOL/L (98-107); CK-MB VALUE MASS < 1.0 NG/ML (<3.6); CPK CREATINE PHOSPHOKINASE 51 U/L (34-145); CREATININE FOR GFR 0.67 MG/DL (0.55-1.30); GLOMERULAR FILTRATION RATE > 60.0 (>45); GLUCOSE, FASTING 113 MG/DL (74-106); MB/CK RELATIVE INDEX 1.96 (< OR =4); POTASSIUM SERUM 3.8 MMOL/L (3.5-5.1); SODIUM LEVEL 137 MMOL/L (136-145)
[2023-07-26 04:24] LABS: CK-MB VALUE MASS < 1.0 NG/ML (<3.6); CPK CREATINE PHOSPHOKINASE 40 U/L (34-145)
== END 2023-07-26 06:44 | disposition home or self-care (01) ==
LOC: M ED 01:51
DX: R07.9 Chest pain, unspecified (principal); M79.601 Pain in right arm; K21.9 Gastro-esophageal reflux disease without esophagitis; K58.9 Irritable bowel syndrome, unspecified; F41.9 Anxiety disorder, unspecified; F32.A Depression, unspecified; Z95.0 Presence of cardiac pacemaker; Z91.048 Other nonmedicinal substance allergy status; Z79.52 Long term (current) use of systemic steroids; Z79.811 Long term (current) use of aromatase inhibitors; Z79.83 Long term (current) use of bisphosphonates; Z79.899 Other long term (current) drug therapy

== ENCOUNTER → 2023-07-30 | Outpatient (CLI) | payer BC | LOC: M PLAIMG 13:53 | PROVIDERS: ATTEND Physician Assistant | DX: S83.91XA Sprain of unspecified site of right knee, initial encounter (principal); X58.XXXA Exposure to other specified factors, initial encounter; Y92.9 Unspecified place or not applicable ==

== ENCOUNTER → 2023-08-28 | Outpatient (CLI) | payer BC | LOC: M WHC 14:49 | PROVIDERS: ATTEND Physician Assistant | DX: M79.604 Pain in right leg (principal) ==

== ENCOUNTER → 2023-09-24 | Outpatient (REF) | payer BC | LOC: M LAB REF 16:19 | PROVIDERS: ATTEND Internal Medicine | DX: D51.9 Vitamin B12 deficiency anemia, unspecified (principal) ==

== ENCOUNTER → 2023-10-08 | Outpatient (CLI) | payer BC | LOC: M PLAIMG 11:10 | PROVIDERS: ATTEND Nurse Practitioner Family | DX: M51.36 Other intervertebral disc degeneration, lumbar region (principal); M54.50 Low back pain, unspecified ==

== ENCOUNTER → 2023-12-11 | Outpatient (CLI) | payer BC ==
[~2023-12-11] MED LIST changes: +DOXY-323 PO; -DOXY-443 PO
== END ==
LOC: M WHC 08:48
PROVIDERS: ATTEND Nurse Practitioner Family
DX: Z12.31 Encounter for screening mammogram for malignant neoplasm of breast (principal)

== ENCOUNTER → 2024-01-22 | Outpatient (CLI) | payer BC | LOC: M SLEEP HO 11:16 | PROVIDERS: ATTEND Internal Medicine Pulmonary Disease | DX: G47.33 Obstructive sleep apnea (adult) (pediatric) (principal) ==

== ENCOUNTER → 2024-10-04 | Outpatient (CLI) | payer BC ==
[~2024-10-04] MED LIST changes: -DOXY-323 PO; +DOXY-441 PO
== END ==
LOC: M EKG 13:22
PROVIDERS: ATTEND Physician Assistant
DX: R00.2 Palpitations (principal); Z53.9 Procedure and treatment not carried out, unspecified reason

== ENCOUNTER 2025-02-01 12:41 | Emergency (ER) | payer BC ==
[~2025-02-01] VITALS: Ht 162.6 cm; Wt 96.5 kg
[~2025-02-01 12:41] MED LIST changes: +ACYC-438 PO; -ACYC1TAB PO; -PREG50CA PO; +PREG50CA87 PO
[2025-02-01] MEDS ORDERED: PREG75CA3 (12:55)
[2025-02-01] MEDS ORDERED: SEMA1PEN2 (12:55)
[2025-02-01] MEDS ORDERED: ROSU5TAB49 (12:55)
[2025-02-01] MEDS ORDERED: VENL75TA2 (12:55)
[2025-02-01] MEDS ORDERED: SEMA2PEN (12:55)
[2025-02-01] MEDS ORDERED: BUPR-766 (12:55)
[2025-02-01 14:15] VITALS: BP 119/58; O2SAT 94
[2025-02-01 14:17] VITALS: TEMP 97.5
[2025-02-01] MEDS ORDERED: IBUP-1022 PO (14:17)
== END 2025-02-01 14:26 | disposition home or self-care (01) ==
LOC: M ED 12:41
DX: R07.1 Chest pain on breathing (principal); I10 Essential (primary) hypertension; Z91.018 Allergy to other foods; Z91.010 Allergy to peanuts

== ENCOUNTER → 2025-02-07 | Outpatient (CLI) | payer BC ==
[~2025-02-07] MED LIST changes: +BUPR-766; +IBUP-1022 PO; +PREG75CA3; +ROSU5TAB49; +SEMA1PEN2; +SEMA2PEN; +VENL75TA2
== END ==
LOC: M PLAIMG 11:16
PROVIDERS: ATTEND Nurse Practitioner Family
DX: M54.6 Pain in thoracic spine (principal); M54.59 Other low back pain

== ENCOUNTER → 2025-06-09 | Outpatient (REF) | payer BC ==
[~2025-06-09] MED LIST changes: -IBUP-1022 PO; +IBUP600T42 PO
[2025-06-09 14:30] LABS: VITAMIN B12 LEVEL 677.0 PG/ML (211-911)
[2025-06-09 14:31] LABS: CORTISOL AM 18.9 UG/DL (4.3-22.4)
[2025-06-10 21:58] LABS: PROTEIN, TOTAL SO 7.3 g/dL (6.1-8.1)
[2025-06-13 15:22] LABS: FREE KAPPA LIGHT CHAINS SERUM 22.5 mg/L (3.3-19.4); FREE LAMBDA LIGHT CHAINS SERUM 14.9 mg/L (5.7-26.3); KAPPA/LAMBDA RATIO SERUM 1.51 (0.26-1.65)
== END ==
LOC: M LAB REF 12:26
PROVIDERS: ATTEND Internal Medicine
DX: I95.1 Orthostatic hypotension (principal)